=== PATIENT | male | born 1985 | race Caucasian/White ===

== ENCOUNTER 2020-11-25 14:49 | Emergency (ER) | payer OTHER ==
[~2020-11-25 14:49] MED LIST: BENTYL 20MG TAB20 MG PO; CARAFATE1 GM PO; PROTONIX 20 MG20 MG PO; ZOFRAN ODT 4 MG4 MG SL
[2020-11-25] MEDS ORDERED: ZYRTEC10 MG PO (15:39)
[2020-11-25] MEDS ORDERED: ZOFRAN4 MG PO (15:39)
[2020-11-25] MEDS ORDERED: AFRIN15 M1 (15:39)
== END 2020-11-25 15:09 | disposition home or self-care (01) ==
LOC: ER1 14:49
DX: R11.2 Nausea with vomiting, unspecified (principal); J32.9 Chronic sinusitis, unspecified; F17.290 Nicotine dependence, other tobacco product, uncomplicated
CPT/HCPCS: 99284

== ENCOUNTER 2021-11-30 13:46 | Emergency (ER) | payer OTHER ==
[~2021-11-30 13:46] MED LIST changes: +AFRIN15 M1; +ZOFRAN4 MG PO; +ZYRTEC10 MG PO
== END 2021-11-30 16:18 | disposition home or self-care (01) ==
LOC: ER1 13:46
DX: S93.402A Sprain of unspecified ligament of left ankle, initial encounter (principal); F17.290 Nicotine dependence, other tobacco product, uncomplicated; X50.9XXA Other and unspecified overexertion or strenuous movements or postures, initial encounter; Y92.009 Unspecified place in unspecified non-institutional (private) residence as the place of occurrence of the external cause
CPT/HCPCS: 73590; 73610; 99283